=== PATIENT | female | born 1990 | race Caucasian/White ===

== ENCOUNTER 2020-05-20 17:44 | Emergency (ER) | payer OTHER ==
--- NOTE | 2020-05-20 18:09 | ER Document Report ---
HPI - HPI Patient complains to provider of: dysuria Time Seen by Provider: 05/20/20 18:08 Pain Level: 5 Notes: 30-year-old female to the emergency department with complaints of dysuria for the past 2 weeks that is significantly worsened in the past several days. She states it hurts every time she urinates. She states now the pain is gotten significantly worse. She states it really hurts when she urinates particularly at the end of her stream. She states initially she is using Pyridium which did help but it now little longer helps. She states that she just recently moved to the area for the and she was requested by her commands to quarantine for 2 weeks. She states that her symptoms started directly at the front of the quarantine and she did not want a break the rules. Now that she is passed for 2 weeks her symptoms have gotten worse. Denies any nausea or vomiting. Denies any flank pain. Denies any fevers or chills. She is denies any chance for . Denies any concern for vaginal discharge or STD. - ROS Systems Reviewed and Negative: Yes All other systems reviewed and negative - CONSTITUTIONAL Constitutional: DENIES: Fever, Chills - EENT EENT: DENIES: Sore Throat, Ear Pain, Congestion - NEURO Neurology: DENIES: Headache, Weakness - CARDIOVASCULAR Cardiovascular: DENIES: Chest pain - RESPIRATORY Respiratory: DENIES: Trouble Breathing, Coughing - GASTROINTESTINAL Gastrointestinal: DENIES: Abdominal Pain, Nausea, Patient vomiting, Diarrhea - URINARY Urinary: REPORTS: Dysuria, Urgency, Frequency Notes: Reports hematuria and sensation of incomplete voiding; significant dysuria at the end of her stream - REPRODUCTIVE Notes: Denies possibility for . - MUSCULOSKELETAL Musculoskeletal: DENIES: Extremity pain, Back Pain, Neck Pain, Swelling - DERM Skin Color: Normal Skin Problems: None Past Medical History - General Information source: Patient - Social History Smoking Status: Never Smoker Chew tobacco use (# tins/day): No Frequency of alcohol use: Social Drug Abuse: None Family History: Reviewed & Not Pertinent Patient has homicidal ideation: No Vertical Provider Document - CONSTITUTIONAL Agree With Documented VS: Yes General Appearance: WD/WN, No Apparent Distress - HEENT HEENT: Atraumatic, Normocephalic, PERRLA - NECK Neck: Normal Inspection, Supple - RESPIRATORY Respiratory: Breath Sounds Normal, No Respiratory Distress. negative: Rales, Rhonchi, Wheezing - CARDIOVASCULAR Cardiovascular: Regular Rate, Regular Rhythm, No Murmur - GI/ABDOMEN Gastrointestinal: Abdomen Soft, Abdomen Non-Tender, No Organomegaly - BACK Back: Normal Inspection. negative: CVA Tenderness-Right, CVA Tenderness-Left - MUSCULOSKELETAL/EXTREMETIES Musculoskeletal/Extremeties: MAEW, FROM, Non-Tender - NEURO Level of Consciousness: Awake, Alert, Appropriate - DERM Integumentary: Warm, Dry, No Rash Course - Re-evaluation Re-evalutation: Impression: UTI, dysuria. Noted urinalysis. Will send home with antibiotics and culture the urine. Also similar home with some Toradol for her pain. She agrees with plan - Vital Signs Vital signs: Temp Pulse Resp BP Pulse Ox 98.2 F 48 L 18 120/51 L 99 05/20/20 17:51 05/20/20 17:51 05/20/20 17:51 05/20/20 17:51 05/20/20 17:51 Discharge - Discharge Clinical Impression: UTI (urinary tract infection), Dysuria Condition: Stable Disposition: HOME, SELF-CARE Instructions: Urinary Tract Infection ([facility]) Additional Instructions: Push fluids. Take all antibiotics as prescribed. Return if any worsening symptoms. Follow-up with primary care. Prescriptions: Ketorolac Tromethamine [Toradol 10 mg Tablet] 10 mg PO Q8HP PRN #9 tablet PRN Reason: Cephalexin Monohydrate [Keflex 500 mg Capsule] 500 mg PO BID 7 Days #14 capsule Referrals: DAISY HUA DO [NO LOCAL MD] - Follow up in 1 week (for PCP)
[2020-05-20 18:55] LABS: APPEARANCE,URINE SLIGHTLY-CLOUDY; BILIRUBIN,URINE NEGATIVE (NEGATIVE); COLOR,URINE YELLOW; GLUCOSE, URINE NEGATIVE (NEGATIVE); KETONES,URINE NEGATIVE (NEGATIVE); PROTEIN,URINE NEGATIVE (NEGATIVE); UROBILINOGEN,URINE NEGATIVE mg/dL (<2.0)
[2020-05-20] MEDS ORDERED: CEFTRIAXONE INJ 500 MG VIAL IM ONE (19:00)
[2020-05-20] MEDS ORDERED: LIDOCAINE 1% INJ-PF (10 MG/ML) 30 ML SDV INJ ONE (19:00)
[2020-05-21 03:15] VITALS: BP 128/67
== END 2020-05-20 20:40 | disposition home or self-care (01) ==
LOC: ER 17:44
DX: N39.0 Urinary tract infection, site not specified (principal)
CPT/HCPCS: 99284; 96372; 87086; 81025; 87088; 81001; 87186; J3490; J0696; 36415